=== PATIENT | male | born 1980 | race Caucasian/White ===

== ENCOUNTER → 2020-07-08 | Outpatient (CLI) | payer OTHER ==
--- NOTE | 2020-07-09 08:11 | XR ---
Lumbosacral spine HISTORY: Pain down left leg, sciatica, M [id number] 5 views of the lumbosacral spine Lumbar vertebral bodies show preserved height, alignment, and bone mineralization. There is mild spon dylosis present near the thoracic lumbar junction. Disc spaces are maintained at the lower levels, so me disc height loss present L1-2, T12-L1. No evident spondylolysis on oblique views. IMPRESSION: Degenerative disc disease.
== END | disposition home or self-care (01) ==
LOC: RADXRYALE 15:46
PROVIDERS: ATTEND Internal Medicine
DX: M51.37 Other intervertebral disc degeneration, lumbosacral region (principal)
CPT/HCPCS: 72110

== ENCOUNTER 2020-08-13 07:43 | Emergency (ER) | payer OTHER ==
[2020-08-13 07:47] VITALS: BP 167/78; PULSE 95; RESP 18; TEMP 98.6
[2020-08-13] MEDS ORDERED: ORPHENADRINE 30 MG/ML 2 ML VIAL IM STA (08:07)
[2020-08-13] MEDS ORDERED: KETOROLAC 15 MG/ML 1 ML VIAL IM STA (08:07)
--- NOTE | 2020-08-13 08:34 | ED ---
General Adult HPI - General Chief complaint: Extremity Problem,Nontraumatic Stated complaint: back pain Time Seen by Provider: 08/13/20 07:48 Source: patient, RN notes reviewed Mode of arrival: ambulatory Limitations: no limitations - History of Present Illness Initial comments: 40-year-old male with a past medical history of hypertension presents to the emergency room for chief complaint of low back and left leg pain. Patient states this started about 2 months ago. States it starts in the left side of his low back and sometimes radiates down his left leg. Patient states he is a [place] and exacerbated this again at work yesterday. States right now it is actually feeling better than it has in quite a while. Patient states he saw his primary care provider that ordered x-rays. States he has not seen her since for that problem. Patient denies any weakness of the legs. Denies bladder or bowel changes, denies saddle anesthesia, denies fevers. Denies any symptoms in the right leg Patient has no other complaints at this time including shortness of breath, chest pain, abdominal pain, nausea or vomiting, headache, or visual changes. - Related Data Home Medications Medication Instructions Recorded Confirmed Cyclobenzaprine [Flexeril] 10 mg PO DAILY 08/13/20 08/13/20 Ibuprofen [Motrin] 800 mg PO Q12H PRN 08/13/20 08/13/20 Losartan Potassium 100 mg PO HS 08/13/20 08/13/20 Previous Rx's Medication Instructions Recorded predniSONE 50 mg PO DAILY #5 tablet 08/13/20 Allergies Allergy/AdvReac Type Severity Reaction Status Date / Time No Known Allergies Allergy Verified 08/13/20 08:26 Review of Systems ROS Statement: Those systems with pertinent positive or pertinent negative responses have been documented in the HPI. ROS Other: All systems not noted in ROS Statement are negative. Past Medical History Past Medical History: Hypertension History of Any Multi-Drug Resistant Organisms: None Reported Past Surgical History: No Surgical Hx Reported Past Psychological History: No Psychological Hx Reported Smoking Status: Never smoker Past Alcohol Use History: Occasional Past Drug Use History: None Reported General Exam Limitations: no limitations General appearance: alert, in no apparent distress Head exam: Present: atraumatic, normocephalic, normal inspection Eye exam: Present: normal appearance, PERRL, EOMI. Absent: scleral icterus, conjunctival injection, periorbital swelling ENT exam: Present: normal exam, mucous membranes moist Neck exam: Present: normal inspection, full ROM. Absent: tenderness, meningismus, lymphadenopathy Respiratory exam: Present: normal lung sounds bilaterally. Absent: respiratory distress, wheezes, rales, rhonchi, stridor Cardiovascular Exam: Present: regular rate, normal rhythm, normal heart sounds. Absent: systolic murmur, diastolic murmur, rubs, gallop, clicks GI/Abdominal exam: Present: soft, normal bowel sounds. Absent: distended, tenderness, guarding, rebound, rigid Extremities exam: Present: normal capillary refill (capillary refill less than 2 seconds, DP and PT pulses 2+ left lower extremity), other (Sensation intact left lower extremity. Normal skin exam). Absent: pedal edema, calf tenderness Back exam: Absent: paraspinal tenderness, vertebral tenderness Course Vital Signs 08/13/20 07:45 Temperature 98.6 F Pulse Rate 95 Respiratory 18 Rate Blood Pressure 167/78 O2 Sat by Pulse 98 Oximetry Medical Decision Making - Medical Decision Making Vitals are stable. Neurovascular status intact left lower extremity. Strength 5 out of 5 left lower extremity, sensation intact. DP pulse 2+, skin exam normal. Positive straight leg raise test. No red flag symptoms. Symptoms are consistent with a radicular pain. At this time recommend steroids as well as Tylenol for the day. We will give him a starter pack of Tylenol 3 for breakthrough pain. I will give him referral to orthopedic physicians for MRI. He will return here for any worsening symptoms which were discussed in depth wit h him. Patient was able to schedule appointment for today at 220pm Disposition Clinical Impression: Back pain, Radiculopathy, Leg pain, left Disposition: HOME SELF-CARE Condition: Good Instructions (If sedation given, give patient instructions): Lumbar Radiculopathy (ED) Additional Instructions: Please take prednisone as directed. Take tylenol instead of motrin until you have finished this prescription. You may take Tylenol 3 as long as you are not driving or operating machinery. Please follow-up with orthopedic surgeon. Call today for the earliest appointment. If you have any worsening symptoms such as bladder or bowel changes, saddle anesthesia, weakness of the legs, fevers, or any other concerning symptoms return immediately to the emergency room. Prescriptions: predniSONE 50 mg PO DAILY #5 tablet Is patient prescribed a controlled substance at d/c from ED?: No Referrals: Kya Huff MD [Primary Care Provider] - 1-2 days Philipp Albert DO [Doctor of Osteopathic Medicine] - 1-2 days Suleiman Rojas DO [Doctor of Osteopathic Medicine] - 1-2 days Time of Disposition: 08:50
[2020-08-13] MEDS ORDERED: ACET/COD 300 MG/30 MG STARTER PACK 6 TAB BTL PO STA (08:58)
== END 2020-08-13 09:08 | disposition home or self-care (01) ==
LOC: EC 07:43
DX: M54.10 Radiculopathy, site unspecified (principal); I10 Essential (primary) hypertension; Z79.899 Other long term (current) drug therapy
CPT/HCPCS: 99283; 96372 ×2; J2360; J1885

== ENCOUNTER → 2020-08-22 | Outpatient (CLI) | payer OTHER ==
--- NOTE | 2020-08-22 08:40 | MR ---
EXAMINATION TYPE: MR lumbar spine wo con DATE OF EXAM: 08/22/2020 COMPARISON: Lumbar spine x-ray July 08, 2020 HISTORY: Low back pain into left buttocks and calf x 3 months TECHNIQUE: Multiplanar, multisequence imaging of the lumbar spine is performed without IV contrast. FINDINGS: Sagittal images of the lumbar spine show vertebral body heights and alignment to appear sat isfactory. The intervertebral discs demonstrate normal heights and hydration. The conus medullaris i s normal in position and signal ending superior L1 level. The bone marrow signal intensity is within normal limits. Axial images show T12-L1, L1-L2, L2-L3, and L3-L4 levels all to appear within normal limits. Axial images at the L4-L5 level shows small central disc protrusion but there is increased epidural f at at this level. Spinal canal preserved. Patent bilateral neural foramina. Axial images at L5-S1 level appear within normal limits. Paraspinal muscle bulk is maintained. IMPRESSION: Tiny posterior disc herniation L4-L5 level. No significant findings to account for patien t's left-sided radiculopathy type symptoms however.
== END ==
LOC: RADMRIMAIN 07:48
PROVIDERS: ATTEND Physical Medicine & Rehabilitation
DX: M51.26 Other intervertebral disc displacement, lumbar region (principal)
CPT/HCPCS: 72148

== ENCOUNTER → 2024-09-25 | Outpatient (CLI) | payer BC ==
--- NOTE | 2024-09-26 09:27 | MR ---
EXAMINATION TYPE: MR abdomen wo/w con DATE OF EXAM: 09/25/2024 6:43 AM INDICATION: Patient age:Male; 44 years old; Reason for study: D35.02 BENIGN NEOPLASM OF LEFT ADRENAL GLAND; [facility]. COMPARISON: Outside institution CTA chest 06/26/2024 imaging, report could not be obtained. TECHNIQUE: Multiplanar multi-sequence imaging was performed without and with IV contrast. The patie nt was given 12 ccs of Gadobutrol intravenously and dynamic imaging was performed. Post IV contrast s ubtraction images were also submitted for review. FINDINGS: LOWER CHEST: Elevation of the right hemidiaphragm. Cardiomegaly. ABDOMEN Liver: Noncirrhotic morphology. Enlarged measuring 19.8 cm in CC dimension. No focal lesion. Gallbladder and Bile ducts: Unremarkable. Pancreas: Unremarkable. Spleen: Unremarkable. Adrenal glands: Right adrenal gland is unremarkable. Left adrenal gland 2.5 x 2.2 cm lesion. Stable s ize from prior CT. Demonstrates regions of dropout signal on out of phase imaging. There is an hetero genous enhancement identified. Kidneys: No hydronephrosis. Few left renal nonenhancing T2 hyperintense thin-walled cysts with larges t in the upper pole measuring up to 1.5 cm. Stomach and Bowel: Unremarkable as visualized. Peritoneum: No evidence of pneumoperitoneum, free fluid, or adenopathy. Vasculature: Unremarkable. No aortic aneurysm. Abdominal wall: Unremarkable. Musculoskeletal: The osseous structures appear intact. IMPRESSION: 1. 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 2. Mild hepatomegaly. [facility], , 09/26/2024 9:25 AM
== END | disposition home or self-care (01) ==
LOC: RADMRIMAIN 05:52
PROVIDERS: ATTEND Internal Medicine
DX: D35.02 Benign neoplasm of left adrenal gland (principal); R16.0 Hepatomegaly, not elsewhere classified
CPT/HCPCS: 74183; A9585